=== PATIENT | male | born 1985 | race Caucasian/White ===

== ENCOUNTER 2021-11-14 19:58 | Emergency (ER) | payer OTHER ==
[2021-11-14 21:10] LABS: HEMOGLOBIN 14.2 gm/dl (14.0-17.5); RED BLOOD COUNT 4.77 M/UL (4.20-5.50); WHITE BLOOD COUNT 8.2 K/UL (4.5-11.0)
[2021-11-14 21:29] LABS: BUN/CREATININE RATIO 14 (0-10)
== END 2021-11-15 01:30 | disposition home or self-care (01) ==
LOC: ER1 19:58
PROVIDERS: Student in an Organized Health Care Education/Training Program
DX: R10.9 Unspecified abdominal pain (principal)
CPT/HCPCS: 80053; 81001; 82550; 82553; 83690; 84484; 85025; 85379; 93005; 96372; 96374; 96375; 99284; J1885; J2360; J2405